=== PATIENT | female | born 1940 | race Caucasian/White ===

== ENCOUNTER 2021-01-25 09:58 | Outpatient (CLI) | payer MEDICARE | END 2021-01-25 09:59 | disposition home or self-care (01) | LOC: MADLAB 09:58 | PROVIDERS: ATTEND Family Medicine | DX: I71.4 Abdominal aortic aneurysm, without rupture (principal); R10.9 Unspecified abdominal pain | CPT/HCPCS: 74177 ==

== ENCOUNTER 2023-02-19 16:29 | Emergency (ER) | payer MEDICARE ==
[2023-02-19] MEDS ORDERED: predniSONE 20 MG TAB ONE (18:29)
== END 2023-02-19 18:40 | disposition home or self-care (01) ==
LOC: MADERS 16:29
DX: G44.209 Tension-type headache, unspecified, not intractable (principal); I10 Essential (primary) hypertension; F17.210 Nicotine dependence, cigarettes, uncomplicated
CPT/HCPCS: 70450; J7512

== ENCOUNTER 2023-04-10 10:40 | Outpatient (CLI) | payer MEDICARE | END 2023-04-10 10:41 | disposition home or self-care (01) | LOC: MADRAD 10:40 | PROVIDERS: ATTEND Nurse Practitioner Family | DX: M54.2 Cervicalgia (principal); M47.812 Spondylosis without myelopathy or radiculopathy, cervical region | CPT/HCPCS: 72040 ==